=== PATIENT | male | born 1985 | race Hispanic/Latino ===

== ENCOUNTER 2020-07-15 06:11 | Emergency (ER) | payer SELFPAY ==
[~2020-07-15] VITALS: Ht 167.6 cm; Wt 98.4 kg
--- NOTE | 2020-07-15 06:45 | Emergency Department Note ---
History of Present Illnes History of Present Illness Chief Complaint: COVID PUI History of Present Illness This is a 35 year old male Chief Complaint Comment 35 Y/O MALE PT AAOX3 PRESENTS TO THE ER C/O COUGH, FEVER/CHILLS AND FATIGUE ONSET X6 DAYS [facility]; COVID RESULTS PENDING AT THIS TIME; TEMP 101 AT HOME AND TOOK TYLENOL [facility]; Historian: Patient Arrival Mode: Car Manager Quality Systems Required: No Onset (how long ago): day(s) (6) Location: Chest Quality: cough Radiation: Reports non-radiation Severity: moderate Onset quality: gradual Duration (how long): day(s) (6) Timing of current episode: constant Progression: unchanged Chronicity: new Context: Reports recent illness (COVID symptoms); Denies recent surgery Relieving factors: none Exacerbating factors: none Associated symptoms: Reports denies other symptoms Treatments prior to arrival: none Past Medical/Family History Physician Review I have reviewed the patient's past medical and family history. Any updates have been documented here. Past Medical History Recent Fever: Yes Clinical Suspicion of Infectio: Yes New/Unexplained Change in Ment: No Past Medical History: None Past Surgical History: None Other Last Tetanus: UNK Review of Systems Review of Systems Constitutional: Reports no symptoms EENTM: Reports no symptoms Cardiovascular: Reports no symptoms Respiratory: Reports as per HPI, Reports cough Gastrointestinal: Reports no symptoms Genitourinary: Reports no symptoms Musculoskeletal: Reports no symptoms Integumentary: Reports no symptoms Neurological: Reports no symptoms Psychological: Reports no symptoms Endocrine: Reports no symptoms Hematological/Lymphatic: Reports no symptoms Physical Exam Related Data Allergies: Coded Allergies: No Known Allergies (Unverified , 04/10/16) Triage Vital Signs Vital Signs Date Time Temp Pulse Resp B/P (MAP) Pulse Ox O2 Delivery O2 Flow Rate FiO2 07/15/20 06:17 100.8 93 20 127/82 93 Room Air Vital signs reviewed: Yes Physical Exam CONSTITUTIONAL Constitutional: Present well-developed, Present well-nourished HENT HENT: Present normocephalic, Present atraumatic, Present oropharynx clear/moist, Present nose normal HENT L/R: Present left ext ear normal, Present right ext ear normal EYES Eyes: Reports PERRL, Reports conjunctivae normal NECK Neck: Present ROM normal PULMONARY Pulmonary: Present effort normal, Present breath sounds normal CARDIOVASCULAR Cardiovascular: Present regular rhythm, Present heart sounds normal, Present capillary refill normal, Present normal rate GASTROINTESTINAL Abdominal: Present soft, Present nontender, Present bowel sounds normal GENITOURINARY Genitourinary: Present exam deferred SKIN Skin: Present warm, Present dry MUSCULOSKELETAL Musculoskeletal: Present ROM normal NEUROLOGICAL Neurological: Present alert, Present oriented x 3, Present no gross motor or sensory deficits PSYCHOLOGICAL Psychological: Present mood/affect normal, Present judgement normal Results Imaging Imaging results reviewed: Yes Assessment & Plan Medical Decision Making MDM 35 y.o M w/ no reported PMH presents for COVID symptoms. Saturating 94% on RA. No resp distress. CXR ordered for O2 sats slightly lower than expected given his age/comorbidities. CXR . DC home with COVID disease time course/management teaching. COVID packet given. Patient to self isolate. Appropriate for DC. Return precautions given. Assessment & Plan Final Impression: (1) COVID-19 Depart Disposition: HOME, SELF-CARE Last Vital Signs Date Time Temp Pulse Resp B/P (MAP) Pulse Ox O2 Delivery O2 Flow Rate FiO2 07/15/20 06:17 100.8 93 20 127/82 93 Room Air CHARITY BRIDGES MD Jul 15, 2020 06:44
--- NOTE | 2020-07-15 07:04 | NUR ---
Report to DANA Yeboah
--- NOTE | 2020-07-15 07:22 | Diagnostic Imaging Report ---
EXAMINATION: CHEST SINGLE (PORTABLE) COMPARISON: None INDICATION: Cough, fever, fatigue ^Y ^cough, SoB ^[id number] ^[id number] DISCUSSION: Frontal view of the chest obtained at 0650 hours. HEART AND MEDIASTINUM: The cardiomediastinal silhouette is unremarkable. LINES: None. LUNGS/PLEURA: The lungs are well-inflated. Linear airspace opacities in the base of the left lower lobe adjacent to the diaphragm. The right lung is clear. Vascular markings are normal. No pleural effusion or pneumothorax. BONES AND SOFT TISSUES: No focal osseous lesion. The soft tissues are normal. IMPRESSION: Linear airspace opacities in the base of the left lower lobe suggestive of atelectasis. Signed by: Dr. Enmanuel Cisse MD on 07/15/2020 7:19 AM
[2020-07-15 07:41] VITALS: BP 126/78
== END 2020-07-15 07:42 | disposition home or self-care (01) ==
LOC: ER 07:11
DX: U07.1 COVID-19 (principal); R05 Cough
CPT/HCPCS: 71045; 99283